=== PATIENT | female | born 1995 | race Native Hawaiian/Other Pacific Islander ===

== ENCOUNTER 2020-01-05 00:04 | Outpatient (CLI) | payer OTHER ==
[2020-01-05] MEDS ORDERED: BUPR8SUB2 PO (03:22)
== END 2020-01-05 00:08 | disposition short-term general hospital (02) ==
LOC: AMB 00:04
DX: T43.621A Poisoning by amphetamines, accidental (unintentional), initial encounter (principal); T40.2X1A Poisoning by other opioids, accidental (unintentional), initial encounter; Y92.89 Other specified places as the place of occurrence of the external cause
CPT/HCPCS: A0425; A0427